=== PATIENT | female | born 1990 | race Caucasian/White ===

== ENCOUNTER 2024-07-08 09:55 | Day surgery (SDC) | payer OTHER ==
[2024-07-08 10:13] LABS: HCG URINE TEST NEGATIVE (NEGATIVE)
[2024-07-08] MEDS: Lactated Ringers 1,000 ML IV SCH (10:18)
[2024-07-08] MEDS ORDERED: Lactated Ringers 1,000 ML IV ONE (10:18)
[2024-07-08 10:38] VITALS: RESP 18; O2SAT 99
[2024-07-08] MEDS ORDERED: BRIDION 200MG/2ML IV ONE (12:13)
[2024-07-08] MEDS ORDERED: DIPRIVAN 200 MG/20 ML IV ONE (12:13)
[2024-07-08] MEDS ORDERED: ROCURONIUM BROMIDE IV ONE (12:13)
[2024-07-08] MEDS ORDERED: Zofran 4 MG/2 ML VIAL ONE ×2 (12:13→13:27)
[2024-07-08] MEDS ORDERED: Versed 2 MG/2 ML Injection ONE (12:13)
[2024-07-08] MEDS ORDERED: TORAdol 30 mg Injection ONE (12:13)
[2024-07-08] MEDS ORDERED: Decadron 4 MG INJ ONE (12:13)
[2024-07-08] MEDS ORDERED: Xylocaine-Mpf 2% 5 Ml Vial ONE (12:13)
[2024-07-08] MEDS ORDERED: SUBLIMAZE 100 MCG/2 ML ONE (12:13)
[2024-07-08] MEDS ORDERED: EXPAREL 133 MG/10 ML VIAL IJ ONE (12:16)
[2024-07-08] MEDS ORDERED: Sensorcaine 0.25% 10 ML ONE ×2 (12:35→12:42)
[2024-07-08 13:57] VITALS: TEMP 97.4
[2024-07-08 14:05] VITALS: BP 132/74; PULSE 78
--- NOTE | 2024-07-09 20:29 | OP ---
SURGERY DATE/TIME: 07/08/2024 [id number] PREOPERATIVE DIAGNOSIS: Anal bleeding, pain and prolapsing lesion. POSTOPERATIVE DIAGNOSES: 1) Healing anal fissure. 2) Posterior anal polypoid lesion. 3) Anterior skin tag. PROCEDURES: 1) Rectal examination under anesthesia. 2) Excision of anal polypoid lesion 1.5 cm. 3) Excision of anterior skin tag. SURGEON: Waqas Bishop MD. ANESTHESIA: General. ESTIMATED BLOOD LOSS: Minimal. PATIENT CONDITION: Stable. COMPLICATIONS: None. SPECIMEN: 1) Posterior polyp lesion. 2) Anterior lesion. HISTORY OF PRESENT ILLNESS: The patient is a 33-year-old female that is having some intermittent blood on the toilet paper that she feels something pop out that goes back in, but it is bothersome, was having some pain, and was having some constipation. The pain is actually quite a bit better. I discussed with patient recommendations for exam under anesthesia as she was unable to tolerate office examination. That seems most like prolapsing internal hemorrhoids or a fissure, and she would want to proceed with excision of an internal prolapsing lesion or ligation, internal hemorrhoid. She elected to proceed. FINDINGS: As below. DESCRIPTION OF PROCEDURE: The patient was brought to the operating room. General anesthesia induced. Routinely positioned in lithotomy, appropriately prepped and draped. Time-out performed. Anal block performed with Marcaine. The external exam shows a sentinel pile posteriorly with a healed 1 cm fissure, and then a 1.5 cm polypoid lesion palpable on digital rectal examination posteriorly. Small Hill-Herman inserted. Medium Hill-Herman inserted. Anal rectum examined. She does have just mild internal hemorrhoids throughout, but the main lesion is that posterior prolapsing polypoid lesion that is at the base of that healed anal fissure, so that is excised sharply with cautery. Totally hemostatic. This is not really involving the hemorrhoid at all and no suture ligation performed, and then anteriorly, she has this larger prolapsing area at the level of the anoderm that is probably her other area of concern. This was excised sharply with a [employer] about a 1.5 cm area, and it is sent for pathology. That is sutured with 3-0 Chromic sutures. Clean dressing applied, and all counts were correct. The patient tolerated the procedure well and was taken to Recovery in stable condition.
== END 2024-07-08 14:09 | disposition home or self-care (01) ==
LOC: SDC 09:55
PROVIDERS: ATTEND Surgery
DX: K60.2 Anal fissure, unspecified (principal); K62.5 Hemorrhage of anus and rectum; K62.89 Other specified diseases of anus and rectum; K62.2 Anal prolapse; K62.0 Anal polyp; K64.4 Residual hemorrhoidal skin tags
CPT/HCPCS: 81025; J1100; J1885; J2250; J2405; J2704; J3010